=== PATIENT | male | born 1990 | race Asian ===

== ENCOUNTER 2019-07-28 02:57 | Emergency (ER) | payer BC, OTHER ==
[~2019-07-28] VITALS: Ht 167.6 cm; Wt 63.5 kg
--- NOTE | 2019-07-28 03:27 | NUR ---
Patient discharged to home in stable conditon. Written and verbal after care instructions given. Patient verbalizes understanding of instructions.
== END 2019-07-28 03:28 | disposition home or self-care (01) ==
LOC: ER 03:03
DX: L30.9 Dermatitis, unspecified (principal)
CPT/HCPCS: A4663